=== PATIENT | female | born 1975 | race Caucasian/White ===

== ENCOUNTER 2017-01-12 16:15 | Emergency (ER) | payer MEDICAID ==
[~2017-01-12] VITALS: Ht 162.6 cm; Wt 68.0 kg
[~2017-01-12 16:15] MED LIST: IBUP-1222 PO; OXYC-302 PO
[2017-01-12] MEDS ORDERED: ONDANSETRON 2MG/ML, 2ML ONE (16:52)
[2017-01-12] MEDS ORDERED: ASPIRIN 81 MG TABLET CHEW ONE (16:52)
[2017-01-12] MEDS ORDERED: SODIUM CHLORIDE FLUSH 10ML SYR IVF ONE (17:00)
[2017-01-12] MEDS ORDERED: ASPIRIN 81 MG TABLET CHEW PO ONE (17:00)
[2017-01-12] MEDS ORDERED: ONDANSETRON 2MG/ML, 2ML IVPush ONE (17:00)
[2017-01-12] MEDS ORDERED: SODIUM CHLORIDE 0.9% 1,000ML IVBOLUS ONE (17:00)
[2017-01-12 17:05] LABS: HEMATOCRIT 39.2 % (34.6-47.8); HEMOGLOBIN 13.2 g/dL (11.7-16.4); WHITE BLOOD COUNT 13.5 x10^3/uL (3.4-10)
[2017-01-12 17:09] LABS: ASPARTATE AMINO TRANSFERASE 27 U/L (15-37); BLOOD UREA NITROGEN 11 mg/dL (7-18)
[2017-01-12 17:15] LABS: IS PT STATUS REG ER OR PRE ER? YES
[2017-01-12 17:59] VITALS: BP 113/85
== END 2017-01-12 18:02 | disposition home or self-care (01) ==
LOC: ED 17:26
DX: R55 Syncope and collapse (principal); R11.2 Nausea with vomiting, unspecified
CPT/HCPCS: 36415; 71020; 80053; 84484; 85025; 93005; 96361; 96374; 99285; J2405; J7030; 96372

== ENCOUNTER 2018-10-24 14:19 | Outpatient (CLI) | payer MEDICAID | END 2018-10-24 23:59 | disposition home or self-care (01) | LOC: CFH 14:19 | PROVIDERS: ATTEND Obstetrics & Gynecology | DX: Z12.31 Encounter for screening mammogram for malignant neoplasm of breast (principal); R10.2 Pelvic and perineal pain | CPT/HCPCS: 76830; 77067 ==